=== PATIENT | male | born 1945 | race Caucasian/White ===

== ENCOUNTER 2017-01-03 10:44 | Emergency (ER) | payer MEDICARE, OTHER ==
[2017-01-03 11:56] LABS: RED BLOOD COUNT 5.49 M/UL (4.20-5.50); WHITE BLOOD COUNT 8.9 K/UL (4.5-11.0)
[2017-01-03 12:19] LABS: BUN/CREATININE RATIO 15 (0-10)
== END 2017-01-03 21:00 | disposition short-term general hospital (02) ==
LOC: ER1 10:44 → ZEROF 17:14 → ER1 17:14
PROVIDERS: Emergency Medicine
DX: R06.00 Dyspnea, unspecified (principal); R07.9 Chest pain, unspecified; E78.5 Hyperlipidemia, unspecified; Z79.82 Long term (current) use of aspirin; Z79.899 Other long term (current) drug therapy
CPT/HCPCS: 71010; 80053; 82550; 82553; 83874; 83880; 84484; 85025; 93005; 96372; 96374; 99285; J1650; J2270; J7050; Q9963

== ENCOUNTER → 2021-10-28 | Outpatient (CLI) | payer MEDICARE | LOC: KOH-I 08:37 | DX: M54.6 Pain in thoracic spine (principal); M47.814 Spondylosis without myelopathy or radiculopathy, thoracic region | CPT/HCPCS: 72070 ==

== ENCOUNTER → 2021-12-22 | Outpatient (CLI) | payer MEDICARE | LOC: CT 12:00 | DX: R10.84 Generalized abdominal pain (principal) ==

== ENCOUNTER → 2022-04-26 | Day surgery (SDC) | payer MEDICARE ==
[~2022-04-26] MED LIST: ATORVASTATIN CA40 MG PO; BAYER CHEWABLE81 MG PO; FOSAMAX70 MG PO; METHIMAZOLE5 MG PO; MINIPRES CAP 2 M2 MG PO; MULTI-VITAMIN1 EACH PO
== END | disposition home or self-care (01) ==
LOC: OR 05:41
DX: Z12.11 Encounter for screening for malignant neoplasm of colon (principal); N40.0 Benign prostatic hyperplasia without lower urinary tract symptoms; Z86.010 Personal history of colon polyps; I10 Essential (primary) hypertension; E78.00 Pure hypercholesterolemia, unspecified; E05.90 Thyrotoxicosis, unspecified without thyrotoxic crisis or storm; F43.10 Post-traumatic stress disorder, unspecified; Z79.899 Other long term (current) drug therapy; Z72.89 Other problems related to lifestyle; Z87.891 Personal history of nicotine dependence
CPT/HCPCS: J2704